=== PATIENT | female | born 1950 | race Caucasian/White ===

== ENCOUNTER → 2017-03-14 | Outpatient (CLI) | payer OTHER ==
[~2017-03-14] MED LIST: ACETAMINOPHEN PO; ALBUTEROL17 GM INH; AMBIEN PO; AMIODARONE PO; CORDARONE200 M1 PO; COUMADIN PO; COUMADIN5 MG PO; LORTAB 10/500 T1 TAB PO; LOTREL 5/20 MG1 CAP PO; MULTAQ PO; NORVASC PO; PREMARIN PO; ROBITUSSIN-DM120 ML PO; SKELAXIN PO; SYMBICORT INH; SYNTHROID PO; TOPROL XL PO; ZESTORETIC 20/11 TAB PO; ZITHROMAX PO
--- NOTE | ~2017-03-14 | CR170 ---
[facility]. [facility] A Service of [facility] & [facility] RADIOLOGY TEXT RESULTS PATIENT: CASSIE ELIAS LOCATION: [facility] : 46 UNIT #: [id number] AGE: [address]: Reva Buck APRN SEX: F ORDER DR: [id number] [address] [address] [id number] O MR#: [id number] Acc #: [id number] NAME: CASSIE ELIAS : 1950 SEX: F STUDY DATE/TIME: 03/14/2017 13:00 UNIT: [facility] ROOM: STUDY DESCRIPTION: CR Knee 2 Views Rt Attending Physician: Reva Buck A.P.R.N. Referring Physician: Reva Buck A.P.R.N. Ordering Physician: Reva Buck A.P.R.N. Primary Care Physician: Reva Buck A.P.R.N. MEDICAL IMAGING REPORT This report is preliminary unless electronic signature is present. EXAM Right knee radiograph. INDICATION Right knee pain. 1-month duration. Fall at home. FINDINGS 3 views of the right knee without comparison. There is no acute fracture or dislocation. No knee effusion. There is severe medial joint space narrowing and bulky osteophyte formation around the knee. There is significant patellofemoral or degenerative change. IMPRESSION Severe arthrosis of the right knee. Dictated by... Keyon Betancourt M.D. THIS IS AN ELECTRONICALLY VERIFIED REPORT Keyon Betancourt M.D. at 03/14/2017 4:14 PM MELANIE/rolando TD: 03/14/2017 16:10 JOB #: [id number] MEDICAL IMAGING REPORT Page 1 of 1
== END | disposition home or self-care (01) ==
LOC: SRAD 12:47
DX: M25.561 Pain in right knee (principal); M17.11 Unilateral primary osteoarthritis, right knee
CPT/HCPCS: 73560